=== PATIENT | male | born 1990 | race Caucasian/White ===

== ENCOUNTER 2018-12-29 13:19 | Emergency (ER) | payer OTHER ==
[~2018-12-29] VITALS: Ht 172.7 cm; Wt 81.6 kg
[2018-12-29 13:20] VITALS: BP 130/98
--- NOTE | 2018-12-29 13:38 | NUR ---
VSS, WAIT IN LOBBY.
--- NOTE | 2018-12-29 14:15 | NUR ---
CAME IN WITH C/O OF CHEST PAIN RADIATING TO HIS LEFT SHOULDER , AND LEFT UPPER BACK STARTED SINCE YESTERDAY , WITH LEFT ARM PAIN 3/10 , AND NAUSEA
--- NOTE | 2018-12-29 14:45 | NUR ---
SEEN AND EXAMINED BY ADRIAN WITH ORDERS AND CARRIED OUT.
[2018-12-29] MEDS ORDERED: FAMOTIDINE 20 MG TAB PO ONE (15:20)
[2018-12-29] MEDS ORDERED: ALUMINUM HYD/MAG/SIMETHICONE 30 ML UDC PO ONE (15:20)
[2018-12-29] MEDS ORDERED: LIDOCAINE VISCOUS 2% 20 ML UDC PO ONE (15:20)
--- NOTE | 2018-12-29 15:40 | NUR ---
PT RESTING IN BED, PLAYING ON CELLPHONE. NO ACUTE DISTRESS OR NEEDS AT THIS TIME.
[2018-12-29 15:55] LABS: BASOPHILS % (AUTO) 0.5 % (0.0-2.0); EOSINOPHILS # (AUTO) 0.3 K/uL (0-0.4); EOSINOPHILS % (AUTO) 3.8 % (0.0-4.0); HEMOGLOBIN 15.6 g/dL (12.0-18.0); LYMPHOCYTES # (AUTO) 2.3 K/uL (2.0-11.5); LYMPHOCYTES % (AUTO) 28.9 % (20.5-51.1); MEAN CORPUSCULAR HEMOGLOBIN 30 pg (27-31); MEAN CORPUSCULAR HGB CONC 33 g/dL (33-37); MEAN CORPUSCULAR VOLUME 89.3 fL (80-94); MONOCYTES # (AUTO) 0.6 K/uL (0.8-1.0); MONOCYTES % (AUTO) 8.2 % (1.7-9.3); NEUTROPHILS # (AUTO) 4.6 K/uL (1.8-7.7); NEUTROPHILS % (AUTO) 58.6 % (42.2-75.2); PLATELET COUNT (AUTO) 208 K/uL (140-450); RED BLOOD CELL COUNT(AUTO) 5.26 MIL/uL (4.20-6.10); RED CELL DISTRIBUTION WIDTH 13.8 % (11.6-13.7); WHITE BLOOD COUNT (AUTO) 7.9 K/uL (4.8-10.8)
[2018-12-29 16:13] LABS: POTASSIUM 3.9 mmol/L (3.5-5.1)
[2018-12-29 16:25] LABS: CARBON DIOXIDE 25.9 mmol/L (21-32); TOTAL BILIRUBIN 0.7 mg/dL (0.0-1.0)
--- NOTE | 2018-12-29 16:59 | NUR ---
PT RESTING IN BED, DENIES CP AT THIS TIME.
[2018-12-29 17:48] VITALS: BP 116/77
--- NOTE | 2018-12-29 17:48 | NUR ---
Patient discharged with v/s stable. Written and verbal after care instructions given and explained. Patient verbalized understanding. Ambulatory with steady gait. All questions addressed prior to discharge. Advised to follow up with PMD.
== END 2018-12-29 17:48 | disposition home or self-care (01) ==
LOC: MED 13:19
DX: F41.9 Anxiety disorder, unspecified (principal); K21.9 Gastro-esophageal reflux disease without esophagitis; R03.0 Elevated blood-pressure reading, without diagnosis of hypertension; Z88.0 Allergy status to penicillin; Z88.6 Allergy status to analgesic agent; Z88.8 Allergy status to other drugs, medicaments and biological substances; Z87.891 Personal history of nicotine dependence
CPT/HCPCS: 36415; 71045; 80053; 83690; 84484; 85025; 93005; 99284; Q0092